=== PATIENT | male | born 1995 | race Caucasian/White ===

== ENCOUNTER 2024-05-11 10:40 | Emergency (ER) | payer BC, OTHER ==
[2024-05-11 10:52] VITALS: TEMP 97.1
--- NOTE | 2024-05-11 10:55 | ERPHSYRPT ---
- History of Present Illness Time Seen by Provider: 05/11/24 10:55 Historian: patient, family Exam Limitations: no limitations Patient Subjective Stated Complaint: Pt states "I have abdominal pain on my lower left belly when I move or do stuff. IT sends shooting pain upwards a little bit." Triage Nursing Assessment: Pt presented alert and oriented X 3, skin pwd. Pt ambulates with an upright steady gait. Pt abdomen is soft non tender. Pt laying comfortably on the bed Physician History: This is a thin 29-year-old white male patient who presents to the emergency department by private vehicle accompanied by his significant other with 3-day history of left lower quadrant abdominal pain and a "lifetime" of feeling tired. Patient does not recall any abdominal injury. He has no vomiting and no isidoro diarrhea. He denies chest pain. He denies shortness of breath. Patient states he has never had abdominal surgery in the past. Patient takes no medications chronically and he has no known drug allergies. Timing/Duration: day(s) (3) Quality: sharpness, stabbing Abdominal Pain Onset Location: LLQ Pain Radiation: other (Pain shoots cranially intermittently) Severity of Pain-Max: moderate Severity of Pain-Current: mild Modifying Factors: Improves With: nothing Associated Symptoms: denies symptoms Previous symptoms: no prior history, no recent treatment Allergies/Adverse Reactions: No Known Drug Allergies Allergy (Verified 05/11/24 10:52) Home Medications: No Reportable Medications [No Reported Medications] 05/11/24 [History] Hx Tetanus, Diphtheria Vaccination/Date Given: No Hx Influenza Vaccination/Date Given: No Hx Pneumococcal Vaccination/Date Given: No Immunizations Up to Date: No Travel Risk - International Travel Have you traveled outside of the country in past 3 weeks: No - Emerging Infectious Disease Are you exhibiting symptoms associated with any current EIDs: No - Review of Systems Constitutional: No Symptoms Eyes: No Symptoms Ears, Nose, & Throat: No Symptoms Respiratory: No Symptoms Cardiac: No Symptoms Abdominal/Gastrointestinal: Abdominal Pain (Lower quadrant), No Nausea, No Vomiting, No Diarrhea, No Constipation, No Appetite Changes Genitourinary Symptoms: No Symptoms Musculoskeletal: No Symptoms Skin: No Symptoms Neurological: No Symptoms Psychological: No Symptoms Endocrine: No Symptoms Hematologic/Lymphatic: No Symptoms Immunological/Allergic: No Symptoms All Other Systems: Reviewed and Negative - Past Medical History Pertinent Past Medical History: No - Past Surgical History Past Surgical History: No - Social History Smoking Status: Never smoker Exposure to second hand smoke: Yes Drug Use: none - Social Determinants of Health Will the patient participate in the screening: Declined to provide - Nursing Vital Signs Nursing Vital Signs: Initial Vital Signs Temperature 97.1 F 05/11/24 10:45 Pulse Rate 98 H 05/11/24 10:45 Respiratory Rate 20 05/11/24 10:45 Blood Pressure 157/88 05/11/24 10:45 O2 Sat by Pulse Oximetry 98 05/11/24 10:45 Pain Scale Pain Intensity 2 - Physical Exam General Appearance: no apparent distress, alert, thin Eye Exam: PERRL/EOMI, eyes nml inspection Ears, Nose, Throat Exam: normal ENT inspection, moist mucous membranes Neck Exam: normal inspection, non-tender, supple, full range of motion Respiratory Exam: normal breath sounds, lungs clear, airway intact, No chest tenderness, No respiratory distress Cardiovascular Exam: regular rate/rhythm, normal heart sounds, normal peripheral pulses Gastrointestinal/Abdomen Exam: soft, normal bowel sounds, tenderness (Left lower quadrant mild tenderness with palpation), other (No visible or palpable abdominal wall hernia.), No mass, No guarding, No rebound, No hernia Rectal Exam: not done Back Exam: normal inspection, normal range of motion, No CVA tenderness, No vertebral tenderness Neurologic Exam: alert, oriented x 3, cooperative, calibrator barometers II-XII nml as tested, normal mood/affect, nml cerebellar function, nml station & gait, sensation nml Skin Exam: normal color, warm, dry Lymphatic Exam: No adenopathy SpO2 Interpretation: normal SpO2: 98 O2 Delivery: Room Air - Course Nursing assessment & vital signs reviewed: Yes Ordered Tests: Active Orders 24 hr Category Date Time Status ABDOMEN AND PELVIS W/0 CONTRAS [CT] Stat Exams 05/11/24 11:05 Completed AMYLASE Stat Lab 05/11/24 11:25 Completed CBC W DIFF Stat Lab 05/11/24 11:25 Completed CMP Stat Lab 05/11/24 11:25 Completed LIPASE Stat Lab 05/11/24 11:25 Completed MAGNESIUM Stat Lab 05/11/24 11:25 Completed UA W/RFX UR CULTURE Stat Lab 05/11/24 11:08 Completed Lab/Rad Data: Laboratory Result Diagrams 05/11/24 11:25 05/11/24 11:25 Laboratory Results 05/11/24 05/11/24 05/11/24 Range/Units 11:25 11:25 11:08 WBC 6.2 (4.23-9.07) x10^3/uL RBC 4.80 (4.63-6.08) x10^6/uL Hgb 14.6 (13.7-17.5) g/dL Hct 41.6 (40.1-51.0) % MCV 86.7 (79.0-92.2) fL MCH 30.4 (25.7-32.2) pg MCHC 35.1 (32.3-36.5) g/dL RDW 12.9 (11.6-14.4) % Plt Count 263 (163-337) x10^3/uL MPV 9.7 (9.4-12.4) fL Gran % 50.7 (34.0-67.9) % Immature Gran % (Auto) 0.2 (0.001-0.429) % Nucleat RBC Rel Count 0.0 (0.00-0.2) % Eos # (Auto) 0.16 (0.04-0.54) x10^3/uL Immature Gran # (Auto) 0.01 (0.001-0.031) x10^3u/L Absolute Lymphs (auto) 2.44 (1.32-3.57) x10^3/uL Absolute Monos (auto) 0.41 (0.30-0.82) x10^3/uL Absolute Nucleated RBC 0.00 (0.00-0.012) x10^3u/L Lymphocytes % 39.4 (21.8-53.1) % Monocytes % 6.6 (5.3-12.2) % Eosinophils % 2.6 (0.8-7.0) % Basophils % 0.5 (0.2-1.2) % Absolute Granulocytes 3.14 (1.78-5.38) x10^3/uL Basophils # 0.03 (0.01-0.08) x10^3/uL Sodium 139 (135-145) mmol/L Potassium 3.6 (3.5-5.1) mmol/L Chloride 107 (98-107) mmol/L Carbon Dioxide 24 (22-30) mmol/L Anion Gap 10.6 (5-15) MEQ/L BUN 13 (9-20) mg/dL Creatinine 0.99 (0.66-1.25) mg/dL Estimated GFR 107.1 ML/MIN Glucose 104 (74-106) mg/dL Calcium 9.4 (8.4-10.2) mg/dL Magnesium 2.0 (1.6-2.3) mg/dL Total Bilirubin 0.30 (0.2-1.3) mg/dL AST 37 (17-59) U/L ALT 58 H (0-50) U/L Alkaline Phosphatase 41 (38-126) U/L Serum Total Protein 7.6 (6.3-8.2) g/dL Albumin 4.5 (3.5-5.0) g/dL Amylase 66 (30-110) U/L Lipase 96 (23-300) U/L Urine Color Yellow (Yellow) Urine Appearance Clear (Clear) Urine pH 5.5 (4.6-8.0) Ur Specific [place] 1.025 (1.005-1.030) Urine Protein Negative (Negative) Urine Glucose (UA) Negative (Negative) mg/dL Urine Ketones Negative (Negative) Urine Blood Negative (Negative) Urine Nitrite Negative (Negative) Urine Bilirubin Negative (Negative) Urine Urobilinogen 0.2 (0.2) mg/dL Ur Leukocyte Esterase Negative (Negative) U Hyaline Cast (Auto) NONE SEEN (0-2) /LPF Urine Microscopic RBC 0-2 (0-5) /HPF Urine Microscopic WBC 0-2 (0-5) /HPF Ur Epithelial Cells None Seen (None Seen) /HPF Urine Bacteria None Seen (None Seen) /HPF Urine Culture Reflexed NO (NO) - Progress Progress: pain not gone completely, re-examined Progress Note: 05/11/24 11:18 My medical decision making and the assignment of moderate complexity to this patient's medical issue today is based on review of the patient's past medical history, review of the patient's medication list, reviewed patient drug allergy list, history of present illness and physical findings on examination. The workup in this patient includes urinalysis, CBC, CMP, amylase, lipase, magnesium level. In addition we will order CAT scan of the abdomen pelvis without contrast. Differential diagnosis includes but is not limited to abdominal muscular pain, abdominal wall hernia, diverticulitis, colitis, bowel obstruction 05/11/24 11:51 I interpreted the patient's laboratory data results. Based on the laboratory data results, there are no acute, emergent medical issues. 05/11/24 12:[address] scan of the abdomen pelvis without contrast was interpreted by the radiologist and I reviewed the impression. The impression states there is fatty liver. Otherwise the remainder of the CAT scan of the abdomen pelvis without contrast is normal Counseled pt/family regarding: lab results, diagnosis, need for follow-up, rad results Medical Desision Making - Independent Historian Additional History obtained from: Relative/friend - Diagnostic Testing Diagnostic test were ordered, analyzed, and reviewed by me: Yes Radiological Interpretation: Reviewed by me, Teleradiologist Report - Risk of complications Low Risk: Low risk of morbidity from additional dx testing or treatment - Departure Departure Disposition: Home Clinical Impression: Left lower quadrant abdominal pain Condition: Stable Critical Care Time: No Referrals: TORI STOCKTON [Primary Care Provider] - Follow up/PCP as directed Additional Instructions: Use Tylenol and ibuprofen for pain control. May also alternate ice and heat to the area of tenderness. Do not apply directly onto the skin. Call your primary care provider today, 05/11/2024, to make arrangements for follow-up appointment for further evaluation and management.
[2024-05-11 11:25] LABS: Absolute Neutrophil Ct (ANC) 3.14 x10^3/uL (1.78-5.38); BASOPHIL % 0.5 % (0.2-1.2); Basophil (Absolute #) 0.03 x10^3/uL (0.01-0.08); Eosinophil % 2.6 % (0.8-7.0); Eosinophil (Absolute #) 0.16 x10^3/uL (0.04-0.54); Hematocrit 41.6 % (40.1-51.0); Hemoglobin 14.6 g/dL (13.7-17.5); IMMATURE GRAN # 0.01 x10^3u/L (0.001-0.031); IMMATURE GRAN % 0.2 % (0.001-0.429); Lymphocyte (Absolute #) 2.44 x10^3/uL (1.32-3.57); Lymphocytes % 39.4 % (21.8-53.1); Mean Cell Volume 86.7 fL (79.0-92.2); Mean Corpuscular Hemoglobin 30.4 pg (25.7-32.2); Mean Corpuscular Hgb Concent. 35.1 g/dL (32.3-36.5); Mean Platelet Volume 9.7 fL (9.4-12.4); Monocyte (Absolute #) 0.41 x10^3/uL (0.30-0.82); Monocytes % 6.6 % (5.3-12.2); Neutrophil % 50.7 % (34.0-67.9); Platelet Count 263 x10^3/uL (163-337); Red Cell Distribution Width 12.9 % (11.6-14.4); White Blood Count 6.2 x10^3/uL (4.23-9.07)
[2024-05-11 11:41] LABS: Appearance Clear (Clear); Bacteria None Seen /HPF (None Seen); Bilirubin Negative (Negative); Blood Negative (Negative); Epithelial Cells None Seen /HPF (None Seen); Glucose, Urine Negative (Negative); Hyaline Casts NONE SEEN /LPF (0-2); Ketones Negative (Negative); Leukocyte Esterase Negative (Negative); Nitrite Negative (Negative); Ph 5.5 (4.6-8.0); Protein,Urine Dip Negative (Negative); RBC 0-2 /HPF (0-5); Specific Gravity 1.025 (1.005-1.030); Urobilinogen 0.2 mg/dL (0.2); WBC 0-2 /HPF (0-5)
[2024-05-11 11:42] LABS: ALBUMIN 4.5 g/dL (3.5-5.0); ANION GAP 10.6 MEQ/L (5-15); BILIRUBIN,TOTAL 0.3 mg/dL (0.2-1.3); Calcium 9.4 mg/dL (8.4-10.2); Creatinine 1 0.99 mg/dL (0.66-1.25); EST GLOMERULAR FILTRATION RATE 107.1 ML/MIN; Potassium 3.6 mmol/L (3.5-5.1); Total Protein 7.6 g/dL (6.3-8.2)
[2024-05-11 12:09] VITALS: BP 132/64; PULSE 72; RESP 18
--- NOTE | 2024-05-11 12:32 | XRAY ---
Indication: Left lower quadrant pain 3 days. Multiple contiguous images obtained through the abdomen and pelvis without contrast. Comparison: None Lung bases clear. Heart not enlarged. Noncontrasted stomach and bowel loops appear nonobstructed with normal appendix. Fatty liver. No free fluid/air. Remaining liver, gallbladder, pancreas, spleen, adrenal glands, kidneys, ureters, bladder, and aorta are unremarkable for noncontrast exam. Osseous structures intact. No ventral or inguinal hernias. Impression: Fatty liver. Remaining CT abdomen/pelvis without contrast exam is normal
[2024-05-11 12:37] VITALS: O2SAT 98
== END 2024-05-11 12:44 | disposition home or self-care (01) ==
LOC: ED 10:40
DX: R10.32 Left lower quadrant pain (principal)
CPT/HCPCS: 36415; 74176; 80053; 81001; 82150; 83690; 83735; 85025; 99283; 99284